=== PATIENT | male | born 1995 | race Caucasian/White ===

== ENCOUNTER 2021-04-10 14:16 | Emergency (ER) | payer MEDICAID ==
[2021-04-10 14:28] VITALS: O2SAT 98
--- NOTE | 2021-04-10 14:43 | ERPHSYRPT ---
- History of Present Illness Source: patient Exam Limitations: no limitations Patient Subjective Stated Complaint: wellness check Triage Nursing Assessment: Patient ambulated back to ED and transferred self to bed. Patient A+O X3. Patient's skin pink, warm and dry. Patient states he was at work today and got his temp taken with a machine and it said his temp was 104.0. Patient's work wanted him to get a covid test before coming back to work. Patient also complains of occasional cough, SOB and headache. Patient denies pain or discomfort. Physician History: 26 yo wm w fever at work today. Pt denies cough/myalgias/DOOLEY/N/V/D/dysuria/hematuria. He does have occ coryza. Timing/Duration: today Fever Severity: mild Fever Therapy [employer]: none Associated Symptoms: No abdominal pain, No chest pain, No confusion, No cough, No diaphoresis, No headache, No muscle aches, No nausea/vomiting, No rash, No rhinorrhea, No shortness of breath, No sore throat, No stiff neck, No syncope, No weakness Allergies/Adverse Reactions: No Known Drug Allergies Allergy (Unverified 04/10/21 14:22) Home Medications: No Reportable Medications [No Reported Medications] 04/10/21 [History] Hx Influenza Vaccination/Date Given: No Hx Pneumococcal Vaccination/Date Given: No Immunizations Up to Date: Yes Travel Risk - International Travel Have you traveled outside of the country in past 3 weeks: No - Coronavirus Screening Symptoms: Fever, Cough: New Onset, Shortness of Breath, Headaches/Body Aches/Fatigue - Vaccine Status Have you recieved a Covid-19 vaccination: No - Review of Systems Constitutional: No Symptoms, Fever Eyes: No Symptoms Ears, Nose, & Throat: No Symptoms Respiratory: No Symptoms Cardiac: No Symptoms Abdominal/Gastrointestinal: No Symptoms Genitourinary Symptoms: No Symptoms Musculoskeletal: No Symptoms Skin: No Symptoms Neurological: No Symptoms Psychological: No Symptoms Endocrine: No Symptoms Hematologic/Lymphatic: No Symptoms Immunological/Allergic: No Symptoms - Past Medical History Pertinent Past Medical History: No Neurological History: No Pertinent History ENT History: No Pertinent History Cardiac History: No Pertinent History Respiratory History: No Pertinent History Endocrine Medical History: No Pertinent History Musculoskeletal History: No Pertinent History GI Medical History: No Pertinent History History: No Pertinent History Psycho-Social History: No Pertinent History Male Reproductive Disorders: No Pertinent History - Past Surgical History Past Surgical History: No Neuro Surgical History: No Pertinent History Cardiac: No Pertinent History Respiratory: No Pertinent History Gastrointestinal: No Pertinent History Genitourinary: No Pertinent History Musculoskeletal: No Pertinent History Male Surgical History: No Pertinent History - Social History Smoking Status: Current every day smoker How long have you smoked: years Exposure to second hand smoke: No Drug Use: marijuana Patient Lives Alone: No Significant Family History: no pertinent family hx - Nursing Vital Signs Nursing Vital Signs: Initial Vital Signs Temperature 99.1 F 04/10/21 14:23 Pulse Rate 95 H 04/10/21 14:23 Respiratory Rate 18 04/10/21 14:23 Blood Pressure 145/76 04/10/21 14:23 O2 Sat by Pulse Oximetry 98 04/10/21 14:23 Pain Scale Pain Intensity 0 Mild hypertensive - Physical Exam General Appearance: no apparent distress Eye Exam: PERRL/EOMI, eyes nml inspection ENT Exam: normal ENT inspection, no apparent trauma, TMs normal, pharynx normal Neck Exam: normal inspection, non-tender, supple, full range of motion, trachea midline, No JVD, No limited range of motion, No lymphadenopathy (R), No lymphadenopathy (L), No stiff neck, No thyromegaly, No Brudzinski's sign, No carotid bruit, No Kernig's sign, No meningismus Respiratory Exam: normal breath sounds, lungs clear, no respiratory distress Cardiovascular/Chest Exam: normal heart sounds, regular rate/rhythm, normal peripheral pulses, No murmur, No edema Gastrointestinal/Abdominal Exam: soft, non tender, no distention Extremity Exam: non-tender, normal range of motion, normal inspection, normal capillary refill, no calf tenderness, no pedal edema Neurologic Exam: alert, oriented x 3, cooperative, 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, normal mood/affect, nml cerebellar function, nml station & gait, sensation nml Skin Exam: normal color, warm, dry, No rash Lymphatic: No adenopathy SpO2 Interpretation: normal SpO2: 98 O2 Delivery: Room Air - Course Nursing assessment & vital signs reviewed: Yes Ordered Tests: Active Orders 24 hr Category Date Time Status COVID AG-BINAX NOW RAPID TEST Stat Lab 04/10/21 14:42 Completed Lab/Rad Data: Laboratory Results 04/10/21 Range/Units 14:42 SARS-CoV-2 Ag (Rapid) NEGATIVE (NEGATIVE) - Progress Progress: improved Counseled pt/family regarding: lab results, diagnosis, need for follow-up - Departure Departure Disposition: Home Clinical Impression: Fever Condition: Stable Critical Care Time: No Referrals: DOCTOR,NO FAMILY [Primary Care Provider] - Follow up/PCP as directed Instructions: Fever of Unknown Origin Additional Instructions: Follow up with your family MD Return to ER for any new signs/symptoms Forms: Work/School Release Form
[2021-04-10 15:30] LABS: COVID AG -BINAX NOW RAPID TEST NEGATIVE (NEGATIVE)
[2021-04-10 16:17] VITALS: BP 114/53; PULSE 69
== END 2021-04-10 16:18 | disposition home or self-care (01) ==
LOC: ED 14:16
DX: R50.9 Fever, unspecified (principal); Z72.0 Tobacco use
CPT/HCPCS: 99000; 99283